=== PATIENT | female | born 1980 | race Caucasian/White ===

== ENCOUNTER 2017-09-22 15:22 | Emergency (ER) | payer OTHER ==
[~2017-09-22] VITALS: Ht 160 cm; Wt 74.9 kg
[~2017-09-22 15:22] MED LIST: ALLI60 MG PO; CYMBALTA60 MG PO; Cymbalta PO; DECADRON4 MG PO; Desyrel PO; Flexeril PO; LIDODERM 5% P1 PATCH PO; LIDODERM 5% P1 PATCH TD; MOTRIN800 MG PO; Pepcid PO; TORADOL10 MG PO; TRAZODONE HCL50 MG PO; Ultram PO
[2017-09-22 16:46] LABS: HEMOGLOBIN 13.4 G/DL (11.9-15.5); MCH 30.5 PG (29.0-34.0); MCHC 33.5 G/DL (30.0-36.0); MCV 91.1 FL (83-99); PLATELET COUNT 333 K/uL (156-360); RBC DIS.WIDTH-CV 12.5 % (11.8-14.6); RBC DIS.WIDTH-SD 41.7 % (39-53); RED BLOOD COUNT 4.39 M/uL (3.80-5.20); WHITE BLOOD COUNT 8.2 K/uL (4.1-10.2)
[2017-09-22 16:58] LABS: CHLORIDE 106 mEq/L (99-109); POTASSIUM 4.5 mEq/L (3.7-5.4); SODIUM 138 mEq/L (136-147)
[2017-09-22 16:59] LABS: GLUCOSE 126 mg/dL (70-99)
[2017-09-22 17:03] LABS: CREATININE 0.9 mg/dL (0.6-1.3); GFR ESTIMATE (CALCULATED) > 59 mL/min/
[2017-09-22 17:04] LABS: UREA NITROGEN (BUN) 10 mg/dL (9-23)
[2017-09-22 17:07] LABS: TROP-I INTERPRETATION NEGATIVE; TROPONIN-I < 0.01 ng/mL (0.0-0.30)
[2017-09-22 20:15] VITALS: BP 144/89
== END 2017-09-22 20:16 | disposition home or self-care (01) ==
LOC: EME 15:22
PROVIDERS: Emergency Medicine
DX: R00.2 Palpitations (principal); I10 Essential (primary) hypertension; R25.1 Tremor, unspecified; K21.9 Gastro-esophageal reflux disease without esophagitis; G43.909 Migraine, unspecified, not intractable, without status migrainosus; G35 Multiple sclerosis; F32.9 Major depressive disorder, single episode, unspecified
CPT/HCPCS: 70450; 71046; 73590; 80048; 84484; 85027; 93005; 99281; 99285; J1885; J7030